=== PATIENT | female | born 2005 | race Caucasian/White ===

== ENCOUNTER 2023-02-08 13:48 | Emergency (ER) | payer OTHER ==
[2023-02-08 15:26] LABS: SARS-CoV-2 NAA Rapid Test Not Detected (NotDetected)
== END 2023-02-08 15:50 | disposition home or self-care (01) ==
LOC: CSHERS 13:48
DX: J18.9 Pneumonia, unspecified organism (principal); Z20.822 Contact with and (suspected) exposure to COVID-19
CPT/HCPCS: 71045

== ENCOUNTER 2023-02-09 06:38 | Emergency (ER) | payer OTHER ==
[2023-02-09] MEDS ORDERED: diphenhydrAMINE 50 MG/ML VIAL ONE (07:37)
[2023-02-09 07:46] LABS: #Monocytes 0.3 10x3/uL (0.0-1.1); #Neutrophils 2.7 10x3/uL (1.5-8.4); %Basophils 0.3 % (0.0-2.0); %Eosinophils 0.3 % (0.0-6.0); %Lymphocytes 22.6 % (18.0-47.0); %Monocytes 6.8 % (0.0-10.0); %Neutrophils 69.7 % (40.0-75.0); Hematocrit 40.2 % (34.9-44.5); Hemoglobin 13.2 g/dL (12.0-15.5); Mean Corpuscular HGB CONC 32.8 g/dL (32.0-36.0); Mean Corpuscular Volume 85.2 fl (81.6-98.3); Mean Platelet Volume 9.2 fl (7.4-10.4); Platelet Count 252 10x3/uL (150-450); RBC Distribution Width 12.4 % (11.5-14.5); Red Blood Cell (RBC) Count 4.72 10x6/uL (3.90-5.03); White Blood Cell (WBC) Count 3.8 10x3/uL (3.5-10.5)
[2023-02-09 07:52] LABS: BHCG - Serum Negative (NEGATIVE); Pregs Control Background? CLEAR/WHITE (CLR/WHITE); Pregs Control Bar Appear? YES (CONTROL BAR)
[2023-02-09 08:00] LABS: CRP (Inflammatory) 5.63 mg/dL (= or < 0.5)
[2023-02-09 08:04] LABS: ALT (SGPT) 18 U/L (8-55); AST (SGOT) 18 U/L (5-30); Albumin 3.9 g/dL (3.5-5.0); Alkaline Phosphatase 45 U/L (40-100); Anion Gap 15 mmol/L (10-20); BUN (Urea Nitrogen) 7 mg/dL (8.4-21.0); Bilirubin, Total 0.6 mg/dL (0.2-1.2); Calc. Creatinine Clearance 0 mL/min (70-130); Calcium 8.4 mg/dL (7.8-10.44); Carbon Dioxide 24 mmol/L (22-29); Chloride 101 mmol/L (98-107); Estimated GFR 118; Glucose 88 mg/dL (70-105); Potassium 3.3 mmol/L (3.5-5.1); Protein, Total 6.9 g/dL (6.0-8.3); Sodium 137 mmol/L (136-145)
== END 2023-02-09 12:06 | disposition short-term general hospital (02) ==
LOC: CSHERS 06:38
DX: L51.1 Stevens-Johnson syndrome (principal)
CPT/HCPCS: 80053; 83735; 84703; 85025; 86140; 96374; J1200

== ENCOUNTER 2023-11-23 12:19 | Emergency (ER) | payer OTHER ==
[2023-11-23] MEDS ORDERED: Dicyclomine 20 MG TAB ONE (13:03)
[2023-11-23 13:22] LABS: Bilirubin Neg (Negative); Blood, Urine Negative (Negative); Clarity Clear (Clear); Glucose, Urine (Dipstick) Normal (Negative); Ketone, Urine Negative (Negative); Leukocyte 100 (Negative); Nitrite Negative (Negative); Protein, Urine (Dipstick) Negative (Neg-Trace); Urobilinogen Normal mg/dL (Less than 2)
[2023-11-23 13:26] LABS: Pregnancy Test - Urine (BHCG) Negative (Negative); Pregu Control Background? CLEAR/WHITE (CLR/WHITE); Pregu Control Bar Appear? YES (CONTROL BAR); Specific Gravity 1.015 (1.002-1.036)
[2023-11-23 14:03] LABS: RBC/HPF None Seen HPF (0-3)
[2023-11-23 14:04] LABS: Bacteria/HPF Rare-Few HPF (None Seen); CAUTI Indications for Culture Pelvic or flank pain; Squamous Epithelial 0-3 HPF (0-3); Urine Culture Reflex No No; WBC/HPF 0-3 HPF (0-3)
[2023-11-24 11:22] LABS: Chlamydia by PCR, Vaginal Swab Not Detected (NotDetected); GC by PCR, Vaginal Swab Not Detected (NotDetected)
== END 2023-11-23 15:28 | disposition home or self-care (01) ==
LOC: CSHERS 12:19
DX: N81.4 Uterovaginal prolapse, unspecified (principal); N89.8 Other specified noninflammatory disorders of vagina; F17.290 Nicotine dependence, other tobacco product, uncomplicated
CPT/HCPCS: 76856; 81001; 81025; 87480; 87491; 87510; 87591; 87660; 99284